=== PATIENT | female | born 1965 | race Caucasian/White ===

== ENCOUNTER 2017-03-30 09:29 | Inpatient (IN) | payer OTHER ==
[2017-03-30 09:35] VITALS: BMI 30.2
--- NOTE | 2017-03-30 14:35 | HP ---
CIWA Score - CIWA Score Nausea/Vomitin Muscle Tremors: 3 Anxiety: 4-Mod. Anxious/Guarded Agitation: 2 Paroxysmal Sweats: 2 Orientation: 0-Oriented Tacttile Disturbances: 3-Moderate Itch/Numb/Burn Auditory Disturbances: 0-None Visual Disturbances: 0-None Headache: 0-None Present CIWA-Ar Total Score: 17 Admission ROS BHS - HPI Chief Complaint: 51 y/o f pt with a h/o benzo /ambien dep seeking detox. Allergies/Adverse Reactions: Allergies Allergy/AdvReac Type Severity Reaction Status Date / Time codeine Allergy Intermediate numbness Verified 03/30/17 11:46 trazodone Allergy Intermediate hallucinati Verified 03/30/17 12:32 ons History of Present Illness: pt has h/o benzo /xanax dep needs help to stop use. Exam Limitations: No Limitations - Ebola screening Have you traveled outside of the country in the last 21 days: No Have you had contact with anyone from an Ebola affected area: No Have you been sick,other than usual withdrawal symptoms: No Do you have a fever: No - Review of Systems Constitutional: Malaise, Weight Stable EENT: reports: Other (os blepharosapsm) Respiratory: reports: Shortness of Breath, Other (h/o asthma) Cardiac: reports: Palpitations GI: reports: Constipated, Nausea, Poor Appetite : reports: Frequency Musculoskeletal: reports: Back Pain, Muscle Pain Integumentary: reports: No Symptoms Reported Neuro: reports: Tremors, Dizziness, Other (os blepharospam) Endocrine: reports: No Symptoms Reported Hematology: reports: Blood Clots (rt axilla, rt forearm and rt leg) Psychiatric: reports: Orientated x3, Anxious Other Systems: Reviewed and Negative Patient History - Patient Medical History Hx Anemia: No Hx Asthma: Yes Hx Chronic Obstructive Pulmonary Disease (COPD): No Hx Cancer: No Hx Cardiac Disorders: No Hx Congestive Heart Failure: No Hx Hypertension: No Hx Hypercholesterolemia: Yes (atorvastatin 20mg ) Hx Pacemaker: No HX Cerebrovascular Accident: No Hx Seizures: No Hx Diabetes: No Hx Gastrointestinal Disorders: No Hx Liver Disease: No Hx Genitourinary Disorders: No Hx Sexually Transmitted Disorders: No Hx Renal Disease (ESRD): No Hx Thyroid Disease: No Hx Human Immunodeficiency Virus (HIV): No Hx Hepatitis C: No Hx Depression: Yes Hx Suicide Attempt: No Hx Bipolar Disorder: No Hx Schizophrenia: No - Patient Surgical History Past Surgical History: Yes Other Surgical History: 3 embolisms(1 rt armpit/1rt forearm/1-rt calf) - PPD History Previous Implant?: Yes Documented Results: Negative w/o proof Implanted On Prior R Admission?: No PPD to be Administered?: Yes - Reproductive History Patient is a Female of Child Bearing Age (11 -55 yrs old): Yes Last Menstrual Period: 02/22/10 Patient : No - Smoking Cessation Smoking history: Current every day smoker Have you smoked in the past 12 months: Yes Aproximately how many cigarettes per day: 10 Hx Chewing Tobacco Use: No Initiated information on smoking cessation: Yes 'Breaking Loose' booklet given: 03/30/17 - Substance & Tx. History Hx Alcohol Use: No Hx Substance Use: Yes Substance Use Type: Tranquilizers Hx Substance Use Treatment: No - Substances Abused Alprazolam (Xanax) Route: Oral Frequency: Daily Amount used: 3 stiks Age of first use: 51 Date of Last Use: 03/29/17 ambien Route: Oral Frequency: Daily Amount used: 25-30 (10mg pills) Age of first use: 51 Date of Last Use: 03/29/17 Family Disease History - Family Disease History Family History: Denies Admission Physical Exam S - Vital Signs Vital Signs: Vital Signs - 24 hr 03/30/17 09:32 Temperature 97.9 F Pulse Rate 81 Respiratory 18 Rate Blood Pressure 133/80 - Physical General Appearance: Yes: Appropriately Dressed, Obese, Anxious HEENTM: Yes: EOMI, Hearing grossly Normal, Normocephalic, Normal Voice, TREVOR Respiratory: Yes: Within Normal Limits, Chest Non-Tender, Lungs Clear, Normal Breath Sounds Neck: Yes: Within Normal Limits Breast: Yes: Breast Exam Deferred Cardiology: Yes: Regular Rhythm, Regular Rate, S1, S2 Abdominal: Yes: Non Tender, Soft, Protuberent, Surgical Scar (lowe abd c- section scar well healed) Genitourinary: Yes: Frequency Back: Yes: Decreased Range of Motion Musculoskeletal: Yes: Back pain, Muscle Pain Extremities: Yes: Tremors, Other (well healed scars rt axilla , rt forearm and rt leg (sites of embolisms ) pulses diminished on rt upper extremity) Neurological: Yes: academic services professional II-XII NML intact, Fully Oriented, Numbness (rt upper ext.) Lymphatic: Yes: Within Normal Limits - Diagnostic (1) Benzodiazepine dependence Current Visit: Yes Status: Chronic (2) Hyperlipidemia Current Visit: Yes Status: Chronic Qualifiers: Hyperlipidemia type: unspecified Qualified Code(s): E78.5 - Hyperlipidemia , unspecified (3) Asthma Current Visit: Yes Status: Chronic Qualifiers: Asthma severity: mild Asthma persistence: intermittent Asthma complication type: uncomplicated Qualified Code(s): J45.20 - Mild intermittent asthma, uncomplicated (4) Nicotine dependence Current Visit: Yes Status: Chronic Qualifiers: Nicotine product type: cigarettes Substance use status: uncomplicated Qualified Code(s): F17.210 - Nicotine dependence, cigarettes, uncomplicated (5) Embolism Current Visit: Yes Status: Chronic BHS Breath Alcohol Content Breath Alcohol Content: 0 Urine Pregancy Test - Result Urine Test Results: Negative- NO Line Present Urine Drug Screen - Results Drug Screen Negative: No Urine Drug Screen Results: BZO-Benzodiazepines
[2017-03-30] MEDS ORDERED: MAGNESIUM HYDROX 2400MG/30ML ORAL SUSPENSION 30 ML CUP PO PRN (15:00)
[2017-03-30] MEDS ORDERED: MENTHOL/PHENOL 1 EACH UD MM PRN (15:00)
[2017-03-30] MEDS ORDERED: LOPERAMIDE HCL 2 MG CAPSULE PO PRN (15:00)
[2017-03-30] MEDS ORDERED: guaiFENesin/D-METHORPHAN HB 10 ML UNIT-DOSE CUPS PO PRN (15:00)
[2017-03-30] MEDS ORDERED: MAG HYDROX/AL HYDROX/SIMETH 30 ML UNIT-DOSE CUP PO PRN (15:00)
[2017-03-30] MEDS ORDERED: IBUPROFEN 400 MG TABLET (FP) PO PRN (15:00)
[2017-03-30] MEDS ORDERED: diazePAM 5 MG TABLET PO PRN (15:00)
[2017-03-30] MEDS ORDERED: ACETAMINOPHEN 325 MG TABLET (FP) PO PRN (15:00)
[2017-03-30] MEDS ORDERED: MAGNESIUM CITRATE 300 ML BOTTLE PO PRN (15:00)
[2017-03-30] MEDS ORDERED: P-EPHED 60MG/TRIPROLIDI 2.5MG TABLET PO PRN (15:00)
[2017-03-30] MEDS ORDERED: ALBUTEROL SO4 18 GM HFA INHALER IH PRN (15:05)
[2017-03-30] MEDS ORDERED: diazePAM 5 MG TABLET PO ONE (15:07)
[2017-03-30 15:54] LABS: HIV 1 & 2 AB NEGATIVE; HIV 1 AGp24 NEGATIVE
[2017-03-30 16:57] LABS: URINE APPEARANCE CLEAR; URINE BILIRUBIN NEGATIVE (NEGATIVE); URINE BLOOD 1+ (NEGATIVE); URINE COLOR STRAW; URINE GLUCOSE (UA) NEGATIVE (NEGATIVE); URINE KETONE NEGATIVE (NEGATIVE); URINE NITRITE NEGATIVE (NEGATIVE); URINE PROTEIN NEGATIVE (NEGATIVE); URINE UROBILINOGEN NEGATIVE mg/dL (0.2-1.0)
[2017-03-30 17:09] LABS: URINE BACTERIA RARE /hpf (NONE SEEN); URINE RBC < 1; URINE WBC 0
[2017-03-30 21:03] LABS: URINE LEUK ESTERASE Negative (NEGATIVE)
[2017-03-30] MEDS ORDERED: THIAMINE HCL 100 MG TABLET (FP) PO SCH (22:00)
[2017-03-30] MEDS ORDERED: ATORVASTATIN CA 20 MG TABLET (FP) PO SCH (22:00)
[2017-03-30] MEDS: diazePAM 5 MG TABLET PO SCH (22:23)
[2017-03-31] MEDS: diazePAM 5 MG TABLET PO SCH ×2 (05:43→13:28)
[2017-03-31] MEDS ORDERED: PRENATAL VITAMINS W/ FOLIC ACID TABLET (FP) PO SCH (10:00)
[2017-03-31 10:28] LABS: MEAN CELL VOLUME 90.8 fl (80-96); RDW 13.9 % (11.6-15.6); WHITE BLOOD COUNT 10.6 K/mm3 (4.0-10.0)
[2017-03-31 10:30] LABS: MCH 30.1 pg (25.7-33.7); MCHC 33.1 g/dl (32.0-36.0); PLATELET COUNT 268 K/MM3 (134-434)
[2017-03-31 10:53] LABS: ALBUMIN 3.5 g/dl (3.4-5.0); ANION GAP 6 (8-16); CALCIUM 8.6 mg/dL (8.5-10.1); CO2 29 mmol/L (21-32); CREATININE 0.7 mg/dL (0.55-1.02); GLUCOSE,RANDOM 95 mg/dL (74-106); SGOT/AST 7 U/L (15-37); SGPT/ALT 17 U/L (12-78)
[2017-03-31 10:54] LABS: ALK PHOS 104 U/L (45-117); BILIRUBIN,TOTAL 0.5 mg/dL (0.2-1.0); TOT PROT 6.7 g/dl (6.4-8.2)
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
--- NOTE | 2017-03-31 14:28 | PN ---
S CIWA - CIWA Score Nausea/Vomitin-No Nausea/No Vomiting Muscle Tremors: 4-Moderate,w/Arms Extend Anxiety: 4-Mod. Anxious/Guarded Agitation: 3 Paroxysmal Sweats: 3 Orientation: 0-Oriented Tacttile Disturbances: 0-None Auditory Disturbances: 0-None Visual Disturbances: 0-None Headache: 0-None Present CIWA-Ar Total Score: 14 BHS Progress Note (SOAP) Subjective: Anxiety,tremors,sweating,interrupted sleep,restless Objective: 03/31/17 14:28 Vital Signs - 8 hr 03/31/17 10:00 Temperature 98.4 F Pulse Rate 76 Respiratory 18 Rate Blood Pressure 118/64 Laboratory Tests 03/30/17 03/30/17 03/31/17 12:20 15:00 06:00 WBC 10.6 H RBC 4.57 Hgb 13.7 Hct 41.5 MCV 90.8 MCH 30.1 MCHC 33.1 RDW 13.9 Plt Count 268 MPV 9.0 Sodium Potassium Chloride Carbon Dioxide Anion Gap BUN Creatinine Creat Clearance w eGFR Random Glucose Calcium Total Bilirubin AST ALT Alkaline Phosphatase Total Protein Albumin Urine Color Straw Urine Appearance Clear Urine pH 6.0 Ur Specific [place] 1.001 Urine Protein Negative Urine Glucose (UA) Negative Urine Ketones Negative Urine Blood 1+ H Urine Nitrite Negative Urine Bilirubin Negative Urine Urobilinogen Negative Ur Leukocyte Esterase Negative Urine WBC (Auto) 0 Urine RBC (Auto) < 1 Urine Bacteria Rare RPR Titer HIV 1&2 Antibody Screen Negative HIV P24 Antigen Negative 03/31/17 03/31/17 06:00 06:00 WBC RBC Hgb Hct MCV MCH MCHC RDW Plt Count MPV Sodium 142 Potassium 4.0 Chloride 107 Carbon Dioxide 29 Anion Gap 6 L BUN 7 Creatinine 0.7 Creat Clearance w eGFR > 60 Random Glucose 95 Calcium 8.6 Total Bilirubin 0.5 AST 7 L ALT 17 Alkaline Phosphatase 104 Total Protein 6.7 Albumin 3.5 Urine Color Urine Appearance Urine pH Ur Specific [place] Urine Protein Urine Glucose (UA) Urine Ketones Urine Blood Urine Nitrite Urine Bilirubin Urine Urobilinogen Ur Leukocyte Esterase Urine WBC (Auto) Urine RBC (Auto) Urine Bacteria RPR Titer Nonreactive HIV 1&2 Antibody Screen HIV P24 Antigen labs noted Assessment: 03/31/17 14:28 Withdrawal sx. Plan: Continue detox
[2017-03-31 14:33] VITALS: BP 106/70; PULSE 77; TEMP 98.2
--- NOTE | 2017-03-31 17:37 | DS ---
[facility] Detox Discharge Summary Admission Date: 03/30/17 Discharge Date: 03/31/17 - History Present History: Sedative Dependence Additional Comments: Pt. signed out ama, we warned pt. about withdrawal sx. including seizures which could result in serious injury including . Pertinent Past History: Asthma Hypercholesterolemia - Physical Exam Results Vital Signs: Vital Signs Temperature 98.2 F 03/31/17 14:32 Pulse Rate 77 03/31/17 14:32 Respiratory Rate 18 03/31/17 14:32 Blood Pressure 106/70 03/31/17 14:32 O2 Sat by Pulse Oximetry (%) Pertinent Admission Physical Exam Findings: Withdrawal sx. Laboratory Tests 03/30/17 03/30/17 03/31/17 12:20 15:00 06:00 WBC 10.6 H RBC 4.57 Hgb 13.7 Hct 41.5 MCV 90.8 MCH 30.1 MCHC 33.1 RDW 13.9 Plt Count 268 MPV 9.0 Sodium Potassium Chloride Carbon Dioxide Anion Gap BUN Creatinine Creat Clearance w eGFR Random Glucose Calcium Total Bilirubin AST ALT Alkaline Phosphatase Total Protein Albumin Urine Color Straw Urine Appearance Clear Urine pH 6.0 Ur Specific [place] 1.001 Urine Protein Negative Urine Glucose (UA) Negative Urine Ketones Negative Urine Blood 1+ H Urine Nitrite Negative Urine Bilirubin Negative Urine Urobilinogen Negative Ur Leukocyte Esterase Negative Urine WBC (Auto) 0 Urine RBC (Auto) < 1 Urine Bacteria Rare RPR Titer HIV 1&2 Antibody Screen Negative HIV P24 Antigen Negative 03/31/17 03/31/17 06:00 06:00 WBC RBC Hgb Hct MCV MCH MCHC RDW Plt Count MPV Sodium 142 Potassium 4.0 Chloride 107 Carbon Dioxide 29 Anion Gap 6 L BUN 7 Creatinine 0.7 Creat Clearance w eGFR > 60 Random Glucose 95 Calcium 8.6 Total Bilirubin 0.5 AST 7 L ALT 17 Alkaline Phosphatase 104 Total Protein 6.7 Albumin 3.5 Urine Color Urine Appearance Urine pH Ur Specific [place] Urine Protein Urine Glucose (UA) Urine Ketones Urine Blood Urine Nitrite Urine Bilirubin Urine Urobilinogen Ur Leukocyte Esterase Urine WBC (Auto) Urine RBC (Auto) Urine Bacteria RPR Titer Nonreactive HIV 1&2 Antibody Screen HIV P24 Antigen labs noted - Medication Discharge Medications: Ambulatory Orders Albuterol Sulfate Inhaler - [Ventolin Hfa Inhaler -] 1 - 2 inh PO QID PRN Aspirin [ASA -] 81 mg PO DAILY 03/30/17 Atorvastatin Ca [Lipitor] 20 mg PO HS 03/30/17 Zolpidem Tartrate [Ambien] 10 mg PO HS 03/30/17 - Diagnosis (1) Sedative hypnotic or anxiolytic dependence Current Visit: Yes Status: Acute (2) Substance induced mood disorder Current Visit: Yes Status: Acute (3) Asthma Current Visit: Yes Status: Chronic Qualifiers: Asthma severity: mild Asthma persistence: intermittent Asthma complication type: uncomplicated Qualified Code(s): J45.20 - Mild intermittent asthma, uncomplicated (4) Hyperlipidemia Current Visit: Yes Status: Chronic Qualifiers: Hyperlipidemia type: unspecified Qualified Code(s): E78.5 - Hyperlipidemia , unspecified (5) Nicotine dependence Current Visit: Yes Status: Chronic Qualifiers: Nicotine product type: cigarettes Substance use status: uncomplicated Qualified Code(s): F17.210 - Nicotine dependence, cigarettes, uncomplicated (6) PTSD (post-traumatic stress disorder) Current Visit: Yes Status: Ruled-out - AMA Did Patient Leave Against Medical Advice: Yes
[2017-03-31] MEDS ORDERED: MIRTAZAPINE 15 MG TABLET (FP) PO SCH (22:00)
[2017-04-01] MEDS ORDERED: diazePAM 5 MG TABLET PO SCH (10:00)
[2017-04-01] MEDS ORDERED: ESCITALOPRAM OXALATE 10 MG TABLET (FP) PO SCH (10:00)
--- NOTE | 2017-04-02 09:42 | EKG ---
Test Reason : Blood Pressure : / mmHG Vent. Rate : 073 BPM Atrial Rate : 073 BPM P-R Int : 156 ms QRS Dur : 076 ms QT Int : 414 ms P-R-T Axes : 046 026 029 degrees QTc Int : 456 ms NORMAL SINUS RHYTHM POSSIBLE LEFT ATRIAL ENLARGEMENT BORDERLINE ECG NO PREVIOUS ECGS AVAILABLE Confirmed by LARRY HARVEY, BECKIE ([id number]) on 04/02/2017 9:41:46 AM Referred By: Confirmed By:BECKIE JUAREZ MD
[2017-04-03] MEDS ORDERED: diazePAM 5 MG TABLET PO SCH (10:00)
== END 2017-03-31 16:55 | disposition left against medical advice (07) | DRG 894 ==
LOC: YASAS 09:29 → Y6N 14:05
PROVIDERS: ADMIT Internal Medicine; ATTEND Internal Medicine
PROC: HZ2ZZZZ Detoxification Services for Substance Abuse Treatment (ICD-10-PCS; principal; 2017-03-30)
DX: F13.230 Sedative, hypnotic or anxiolytic dependence with withdrawal, uncomplicated (principal); F17.210 Nicotine dependence, cigarettes, uncomplicated; F41.9 Anxiety disorder, unspecified; F19.24 Other psychoactive substance dependence with psychoactive substance-induced mood disorder; F43.10 Post-traumatic stress disorder, unspecified; J45.20 Mild intermittent asthma, uncomplicated; E78.5 Hyperlipidemia, unspecified
CPT/HCPCS: 36415; 80053; 81003; 81015; 85027; 86593; 87389; 93005; 93010

== ENCOUNTER 2017-06-04 15:45 | Inpatient (IN) | payer OTHER ==
[2017-06-04 18:57] VITALS: BMI 29.8
--- NOTE | 2017-06-04 22:22 | HP ---
CIWA Score - CIWA Score Nausea/Vomitin-Mild Nausea/No Vomiting Muscle Tremors: 4-Moderate,w/Arms Extend Anxiety: 4-Mod. Anxious/Guarded Agitation: 4-Moderately Restless Paroxysmal Sweats: 1-Minimal Palms Moist Orientation: 1-Uncertain about Date Tacttile Disturbances: 1-Very Mild Itch/Numbness Auditory Disturbances: 0-None Visual Disturbances: 0-None Headache: 0-None Present CIWA-Ar Total Score: 16 Admission ROS BHS - HPI Chief Complaint: withdrawal sx Allergies/Adverse Reactions: Allergies Allergy/AdvReac Type Severity Reaction Status Date / Time codeine Allergy Intermediate numbness Verified 06/04/17 21:58 trazodone Allergy Intermediate hallucinati Verified 06/04/17 21:58 ons History of Present Illness: 51 years old female with long history of alcohol nicotine dependence has asthma hyperlipidemia depression and history of blood clots is admitted to detox Exam Limitations: No Limitations - Ebola screening Have you traveled outside of the country in the last 21 days: No Have you had contact with anyone from an Ebola affected area: No Have you been sick,other than usual withdrawal symptoms: No Do you have a fever: No - Review of Systems Constitutional: Changes in sleep, Weight Stable EENT: reports: Blurred Vision (eye glasses), Dental Problems (left upper tooth ache) Respiratory: reports: Cough Cardiac: reports: No Symptoms Reported GI: reports: Constipated, Nausea, Poor Fluid Intake, Indigestion, Abdominal cramping : reports: No Symptoms Reported Musculoskeletal: reports: Back Pain Integumentary: reports: Lesions (right breast right lateral) Neuro: reports: Tremors Endocrine: reports: No Symptoms Reported Hematology: reports: No Symptoms Reported Psychiatric: reports: Judgement Intact, Anxious, Depressed Other Systems: Reviewed and Negative Patient History - Patient Medical History Hx Anemia: No Hx Asthma: Yes Hx Chronic Obstructive Pulmonary Disease (COPD): No Hx Cancer: No Hx Cardiac Disorders: No Hx Congestive Heart Failure: No Hx Hypertension: No Hx Hypercholesterolemia: Yes (atorvastatin 20mg ) Hx Pacemaker: No HX Cerebrovascular Accident: No Hx Seizures: No Hx Diabetes: No Hx Gastrointestinal Disorders: No Hx Liver Disease: No Hx Genitourinary Disorders: Yes Hx Sexually Transmitted Disorders: No Hx Renal Disease (ESRD): No Hx Thyroid Disease: No Hx Human Immunodeficiency Virus (HIV): No Hx Hepatitis C: No Hx Depression: Yes Hx Suicide Attempt: No Hx Bipolar Disorder: No Hx Schizophrenia: No - Patient Surgical History Past Surgical History: Yes Hx Neurologic Surgery: No Hx Cataract Extraction: No Hx Cardiac Surgery: No Hx Lung Surgery: No Hx Breast Surgery: No Hx Breast Biopsy: No Hx Abdominal Surgery: No Hx Appendectomy: No Hx Cholecystectomy: No Hx Genitourinary Surgery: No Hx Orthopedic Surgery: No Other Surgical History: 3 embolisms(1 rt armpit/1rt forearm/1-rt calf) Anesthesia Reaction: No - PPD History Previous Implant?: Yes Documented Results: Negative w/o proof Implanted On Prior R Admission?: No PPD to be Administered?: Yes - Reproductive History Patient is a Female of Child Bearing Age (11 -55 yrs old): Yes Last Menstrual Period: 06/04/14 Patient : No - Smoking Cessation Smoking history: Current every day smoker Have you smoked in the past 12 months: Yes Aproximately how many cigarettes per day: 10 Cigars Per Day: 0 Hx Chewing Tobacco Use: No Initiated information on smoking cessation: Yes 'Breaking Loose' booklet given: 06/04/17 - Substance & Tx. History Hx Alcohol Use: No Hx Substance Use: Yes Substance Use Type: Tranquilizers Hx Substance Use Treatment: Yes (03/2017 [facility] - Substances Abused Alprazolam (Xanax) Route: Oral Frequency: Daily Amount used: 6mg Age of first use: 50 Date of Last Use: 06/04/17 Family Disease History - Family Disease History Family Disease History: Heart Disease: Father (), Respiratory: Brother ( depression), Other: Father, Mother (), Sister (depression) Admission Physical Exam S - Vital Signs Vital Signs: Vital Signs - 24 hr 06/04/17 18:53 Temperature 98.9 F Pulse Rate 90 Respiratory 18 Rate Blood Pressure 146/90 - Physical General Appearance: Yes: Appropriately Dressed, Mild Distress, Tremorous, Irritable, Sweating, Anxious HEENTM: Yes: Hearing grossly Normal, Normal ENT Inspection, Normocephalic, Normal Voice Respiratory: Yes: Chest Non-Tender, No Respiratory Distress, No Accessory Muscle Use, Wheezing Neck: Yes: Supple, Trachea in good position Breast: Yes: Breasts Symetrical Cardiology: Yes: Regular Rhythm, S1, S2, Tachycardia Abdominal: Yes: Non Tender, Soft, Decreased BS Genitourinary: Yes: Within Normal Limits Back: Yes: Normal Inspection Musculoskeletal: Yes: full range of Motion, Gait Steady Extremities: Yes: Normal Inspection, Normal Range of Motion, Non-Tender, Tremors Neurological: Yes: Alert, Motor Strength 5/5, Normal Response, Depressed Affect Integumentary: Yes: Warm Lymphatic: Yes: Within Normal Limits - Diagnostic (1) Sedative hypnotic or anxiolytic dependence Current Visit: Yes Status: Acute (2) Asthma Current Visit: Yes Status: Chronic Qualifiers: Asthma severity: mild Asthma persistence: intermittent Asthma complication type: uncomplicated Qualified Code(s): J45.20 - Mild intermittent asthma, uncomplicated (3) Hyperlipidemia Current Visit: Yes Status: Chronic Qualifiers: Hyperlipidemia type: unspecified Qualified Code(s): E78.5 - Hyperlipidemia , unspecified (4) Nicotine dependence Current Visit: Yes Status: Acute Qualifiers: Nicotine product type: cigarettes Substance use status: in withdrawal Qualified Code(s): F17.213 - Nicotine dependence, cigarettes, with withdrawal Cleared for Admission [facility] - Detox or Rehab [facility] Level of Care: Medically Managed Detox Regimen/Protocol: Librium [facility] Breath Alcohol Content Breath Alcohol Content: 0 Urine Pregancy Test - Result Urine Test Results: Negative- NO Line Present Urine Drug Screen - Results Drug Screen Negative: No Urine Drug Screen Results: BZO-Benzodiazepines
[2017-06-04] MEDS ORDERED: chlordiazePOXIDE HCL 25 MG CAPSULE PO PRN (22:31)
[2017-06-04] MEDS ORDERED: MAGNESIUM HYDROX 2400MG/30ML ORAL SUSPENSION 30 ML CUP PO PRN (22:31)
[2017-06-04] MEDS ORDERED: P-EPHED 60MG/TRIPROLIDI 2.5MG TABLET PO PRN (22:31)
[2017-06-04] MEDS ORDERED: MAGNESIUM CITRATE 300 ML BOTTLE PO PRN (22:31)
[2017-06-04] MEDS ORDERED: NICOTINE POLACRILEX 2 MG GUM BC PRN (22:31)
[2017-06-04] MEDS ORDERED: MAG HYDROX/AL HYDROX/SIMETH 30 ML UNIT-DOSE CUP PO PRN (22:31)
[2017-06-04] MEDS ORDERED: ACETAMINOPHEN 325 MG TABLET (FP) PO PRN (22:31)
[2017-06-04] MEDS ORDERED: guaiFENesin/D-METHORPHAN HB 10 ML UNIT-DOSE CUPS PO PRN (22:31)
[2017-06-04] MEDS ORDERED: MENTHOL/PHENOL 1 EACH UD MM PRN (22:31)
[2017-06-04] MEDS ORDERED: LOPERAMIDE HCL 2 MG CAPSULE PO PRN (22:31)
[2017-06-04] MEDS ORDERED: ALBUTEROL SO4 18 GM HFA INHALER IH PRN (22:34)
[2017-06-04] MEDS ORDERED: BACITRACIN 0.9 GM PACKET TP ONE (22:35)
[2017-06-04] MEDS ORDERED: ALBUTEROL SO4 0.083% IH SOL 2.5 MG/3 ML VIAL.NEB. NEB PRN (22:36)
[2017-06-04] MEDS: METHOCARBAMOL 500 MG TABLET PO PRN (23:47)
[2017-06-04] MEDS: chlordiazePOXIDE HCL 25 MG CAPSULE PO SCH (23:47)
[2017-06-05] MEDS: chlordiazePOXIDE HCL 25 MG CAPSULE PO SCH ×4 (05:43→22:29)
[2017-06-05 09:56] LABS: URINE APPEARANCE CLEAR; URINE BILIRUBIN NEGATIVE (NEGATIVE); URINE BLOOD NEGATIVE (NEGATIVE); URINE COLOR LTYELLOW; URINE GLUCOSE (UA) NEGATIVE (NEGATIVE); URINE KETONE NEGATIVE (NEGATIVE); URINE LEUK ESTERASE NEGATIVE (NEGATIVE); URINE NITRITE NEGATIVE (NEGATIVE); URINE PROTEIN NEGATIVE (NEGATIVE)
[2017-06-05 10:08] LABS: HEMATOCRIT 46.1 % (32.4-45.2); HEMOGLOBIN 14.9 GM/dL (10.7-15.3); MCH 29.3 pg (25.7-33.7); MCHC 32.2 g/dl (32.0-36.0); MEAN CELL VOLUME 90.9 fl (80-96); MEAN PLT VOLUME 8.8 fl (7.5-11.1); PLATELET COUNT 286 K/MM3 (134-434); RBC 5.08 M/mm3 (3.60-5.2); RDW 14.4 % (11.6-15.6); WHITE BLOOD COUNT 10.4 K/mm3 (4.0-10.0)
[2017-06-05] MEDS: PRENATAL VITAMINS W/ FOLIC ACID TABLET (FP) PO SCH (10:40)
[2017-06-05] MEDS: ASPIRIN 81 MG CHEWABLE TABLETS PO SCH (10:40)
[2017-06-05] MEDS: RANITIDINE HCL 150 MG TABLET (FP) PO SCH ×2 (10:40→22:29)
[2017-06-05] MEDS: NICOTINE 14 MG/24 HOURS TOPICAL PATCH TD SCH (10:40)
[2017-06-05] MEDS: ESCITALOPRAM OXALATE 10 MG TABLET (FP) PO SCH (10:41)
[2017-06-05] MEDS ORDERED: hydrOXYzine PAMOATE 50 MG CAPSULE (FP) PO PRN (11:04)
[2017-06-05 11:39] LABS: CHLORIDE 104 mmol/L (98-107); POTASSIUM 4.2 mmol/L (3.5-5.1); SODIUM 140 mmol/L (136-145)
[2017-06-05 12:08] LABS: ALBUMIN 3.5 g/dl (3.4-5.0); ALK PHOS 116 U/L (45-117); ANION GAP 11 (8-16); BILIRUBIN,TOTAL 0.3 mg/dL (0.2-1.0); BLOOD UREA NITROGEN 9 mg/dL (7-18); CALCIUM 9.2 mg/dL (8.5-10.1); CO2 25 mmol/L (21-32); CREATININE 0.8 mg/dL (0.55-1.02); GLUCOSE,RANDOM 91 mg/dL (74-106); SGOT/AST 9 U/L (15-37); SGPT/ALT 19 U/L (12-78); TOT PROT 7.3 g/dl (6.4-8.2)
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
--- NOTE | 2017-06-05 14:41 | PN ---
S CIWA - CIWA Score Nausea/Vomitin-Mild Nausea/No Vomiting Muscle Tremors: 3 Anxiety: 2 Agitation: 1-Slight > Activity Paroxysmal Sweats: 3 Orientation: 0-Oriented Tacttile Disturbances: 2-Mild Itch/Numbness/Burn Auditory Disturbances: 0-None Visual Disturbances: 1-Very Mild Sensitivity Headache: 2-Mild CIWA-Ar Total Score: 15 BHS Progress Note (SOAP) Objective: 06/05/17 14:41 Laboratory Tests 06/05/17 06/05/17 06/05/17 07:00 07:00 07:00 WBC 10.4 H RBC 5.08 Hgb 14.9 Hct 46.1 H MCV 90.9 MCH 29.3 MCHC 32.2 RDW 14.4 Plt Count 286 MPV 8.8 Sodium 140 Potassium 4.2 Chloride 104 Carbon Dioxide 25 Anion Gap 11 BUN 9 Creatinine 0.8 Creat Clearance w eGFR > 60 Random Glucose 91 Calcium 9.2 Total Bilirubin 0.3 D AST 9 L ALT 19 Alkaline Phosphatase 116 Total Protein 7.3 Albumin 3.5 Urine Color Urine Appearance Urine pH Ur Specific [place] Urine Protein Urine Glucose (UA) Urine Ketones Urine Blood Urine Nitrite Urine Bilirubin Urine Urobilinogen Ur Leukocyte Esterase RPR Titer Nonreactive 06/05/17 07:00 WBC RBC Hgb Hct MCV MCH MCHC RDW Plt Count MPV Sodium Potassium Chloride Carbon Dioxide Anion Gap BUN Creatinine Creat Clearance w eGFR Random Glucose Calcium Total Bilirubin AST ALT Alkaline Phosphatase Total Protein Albumin Urine Color Ltyellow Urine Appearance Clear Urine pH 7.0 Ur Specific [place] 1.011 Urine Protein Negative Urine Glucose (UA) Negative Urine Ketones Negative Urine Blood Negative Urine Nitrite Negative Urine Bilirubin Negative Urine Urobilinogen 2.0 H Ur Leukocyte Esterase Negative RPR Titer Vital Signs - 24 hr 06/04/17 06/04/17 06/05/17 18:53 23:51 03:30 Temperature 98.9 F 98.2 F Pulse Rate 90 91 H Respiratory 18 18 18 Rate Blood Pressure 146/90 125/78 06/05/17 06/05/17 06:00 09:40 Temperature 98.1 F 97.6 F Pulse Rate 75 80 Respiratory 18 18 Rate Blood Pressure 121/60 108/64 Assessment: 06/05/17 14:41 withdrawal Plan: continue protocol
[2017-06-05] MEDS: THIAMINE HCL 100 MG TABLET (FP) PO SCH (22:28)
[2017-06-05] MEDS: MIRTAZAPINE 15 MG TABLET (FP) PO SCH (22:28)
[2017-06-05] MEDS: ATORVASTATIN CA 20 MG TABLET (FP) PO SCH (22:29)
[2017-06-05] MEDS: SENNOSIDES 8.6MG TABLET (FP) PO SCH (22:29)
[2017-06-06] MEDS: chlordiazePOXIDE HCL 25 MG CAPSULE PO SCH ×3 (06:39→17:51)
--- NOTE | 2017-06-06 07:55 | EKG ---
Test Reason : Blood Pressure : / mmHG Vent. Rate : 074 BPM Atrial Rate : 074 BPM P-R Int : 156 ms QRS Dur : 066 ms QT Int : 356 ms P-R-T Axes : 052 025 017 degrees QTc Int : 395 ms NORMAL SINUS RHYTHM POSSIBLE LEFT ATRIAL ENLARGEMENT BORDERLINE ECG WHEN COMPARED WITH ECG OF 30-MAR-2017 17:29, QT HAS SHORTENED Confirmed by LARRY HRAVEY, BECKIE ([id number]) on 06/06/2017 7:54:52 AM Referred By: Confirmed By:BECKIE JUAREZ MD
[2017-06-06] MEDS: ASPIRIN 81 MG CHEWABLE TABLETS PO SCH (10:49)
[2017-06-06] MEDS: ESCITALOPRAM OXALATE 10 MG TABLET (FP) PO SCH (10:49)
[2017-06-06] MEDS: RANITIDINE HCL 150 MG TABLET (FP) PO SCH ×2 (10:49→22:32)
[2017-06-06] MEDS: PRENATAL VITAMINS W/ FOLIC ACID TABLET (FP) PO SCH (10:50)
[2017-06-06] MEDS: NICOTINE 14 MG/24 HOURS TOPICAL PATCH TD SCH (10:51)
--- NOTE | 2017-06-06 15:59 | PN ---
S CIWA - CIWA Score Nausea/Vomitin Muscle Tremors: 2 Anxiety: 3 Agitation: 2 Paroxysmal Sweats: 3 Orientation: 0-Oriented Tacttile Disturbances: 1-Very Mild Itch/Numbness Auditory Disturbances: 0-None Visual Disturbances: 0-None Headache: 0-None Present CIWA-Ar Total Score: 13 S Progress Note (SOAP) Subjective: sweats, shakes,anxiety Objective: 06/06/17 15:58 Vital Signs Temperature 98.0 F 06/06/17 13:24 Pulse Rate 80 06/06/17 13:24 Respiratory Rate 18 06/06/17 13:24 Blood Pressure 115/70 06/06/17 13:24 O2 Sat by Pulse Oximetry (%) Laboratory Tests 06/04/17 06/05/17 06/05/17 07:00 07:00 07:00 WBC 10.4 H RBC 5.08 Hgb 14.9 Hct 46.1 H MCV 90.9 MCH 29.3 MCHC 32.2 RDW 14.4 Plt Count 286 MPV 8.8 Sodium 140 Potassium 4.2 Chloride 104 Carbon Dioxide 25 Anion Gap 11 BUN 9 Creatinine 0.8 Creat Clearance w eGFR > 60 Random Glucose 91 Calcium 9.2 Total Bilirubin 0.3 D AST 9 L ALT 19 Alkaline Phosphatase 116 Total Protein 7.3 Albumin 3.5 Urine Color Urine Appearance Urine pH Ur Specific [place] Urine Protein Urine Glucose (UA) Urine Ketones Urine Blood Urine Nitrite Urine Bilirubin Urine Urobilinogen Ur Leukocyte Esterase RPR Titer Hepatitis C Antibody <0.1 06/05/17 06/05/17 07:00 07:00 WBC RBC Hgb Hct MCV MCH MCHC RDW Plt Count MPV Sodium Potassium Chloride Carbon Dioxide Anion Gap BUN Creatinine Creat Clearance w eGFR Random Glucose Calcium Total Bilirubin AST ALT Alkaline Phosphatase Total Protein Albumin Urine Color Ltyellow Urine Appearance Clear Urine pH 7.0 Ur Specific [place] 1.011 Urine Protein Negative Urine Glucose (UA) Negative Urine Ketones Negative Urine Blood Negative Urine Nitrite Negative Urine Bilirubin Negative Urine Urobilinogen 2.0 H Ur Leukocyte Esterase Negative RPR Titer Nonreactive Hepatitis C Antibody pt aox3 in nad ambulating Assessment: 06/06/17 15:59 withdrawal sx's Plan: cont detox increase fluids
[2017-06-06] MEDS: SENNOSIDES 8.6MG TABLET (FP) PO SCH (22:31)
[2017-06-06] MEDS: THIAMINE HCL 100 MG TABLET (FP) PO SCH (22:31)
[2017-06-06] MEDS: chlordiazePOXIDE 5 MG CAPSULE PO SCH (22:31)
[2017-06-06] MEDS: MIRTAZAPINE 15 MG TABLET (FP) PO SCH (22:32)
[2017-06-06] MEDS: ATORVASTATIN CA 20 MG TABLET (FP) PO SCH (22:32)
[2017-06-06] MEDS: METHOCARBAMOL 500 MG TABLET PO PRN (22:32)
[2017-06-07] MEDS: chlordiazePOXIDE 5 MG CAPSULE PO SCH ×3 (06:01→17:09)
[2017-06-07] MEDS: ESCITALOPRAM OXALATE 10 MG TABLET (FP) PO SCH (11:04)
[2017-06-07] MEDS: NICOTINE 14 MG/24 HOURS TOPICAL PATCH TD SCH (11:05)
[2017-06-07] MEDS: PRENATAL VITAMINS W/ FOLIC ACID TABLET (FP) PO SCH (11:05)
[2017-06-07] MEDS: RANITIDINE HCL 150 MG TABLET (FP) PO SCH ×2 (11:05→22:33)
[2017-06-07] MEDS: ASPIRIN 81 MG CHEWABLE TABLETS PO SCH (11:05)
--- NOTE | 2017-06-07 11:57 | PN ---
BHS Progress Note (SOAP) Subjective: tremor anxiety sweat Objective: 06/07/17 11:56 Vital Signs Temperature 97.7 F 06/07/17 09:51 Pulse Rate 67 06/07/17 09:51 Respiratory Rate 18 06/07/17 09:51 Blood Pressure 98/64 06/07/17 09:51 O2 Sat by Pulse Oximetry (%) Laboratory Last Values WBC 10.4 K/mm3 (4.0-10.0) H 06/05/17 07:00 RBC 5.08 M/mm3 (3.60-5.2) 06/05/17 07:00 Hgb 14.9 GM/dL (10.7-15.3) 06/05/17 07:00 Hct 46.1 % (32.4-45.2) H 06/05/17 07:00 MCV 90.9 fl (80-96) 06/05/17 07:00 MCH 29.3 pg (25.7-33.7) 06/05/17 07:00 MCHC 32.2 g/dl (32.0-36.0) 06/05/17 07:00 RDW 14.4 % (11.6-15.6) 06/05/17 07:00 Plt Count 286 K/MM3 (134-434) 06/05/17 07:00 MPV 8.8 fl (7.5-11.1) 06/05/17 07:00 Sodium 140 mmol/L (136-145) 06/05/17 07:00 Potassium 4.2 mmol/L (3.5-5.1) 06/05/17 07:00 Chloride 104 mmol/L (98-107) 06/05/17 07:00 Carbon Dioxide 25 mmol/L (21-32) 06/05/17 07:00 Anion Gap 11 (8-16) 06/05/17 07:00 BUN 9 mg/dL (7-18) 06/05/17 07:00 Creatinine 0.8 mg/dL (0.55-1.02) 06/05/17 07:00 Creat Clearance w eGFR > 60 (>60) 06/05/17 07:00 Random Glucose 91 mg/dL (74-106) 06/05/17 07:00 Calcium 9.2 mg/dL (8.5-10.1) 06/05/17 07:00 Total Bilirubin 0.3 mg/dL (0.2-1.0) D 06/05/17 07:00 AST 9 U/L (15-37) L 06/05/17 07:00 ALT 19 U/L (12-78) 06/05/17 07:00 Alkaline Phosphatase 116 U/L (45-117) 06/05/17 07:00 Total Protein 7.3 g/dl (6.4-8.2) 06/05/17 07:00 Albumin 3.5 g/dl (3.4-5.0) 06/05/17 07:00 Urine Color Ltyellow 06/05/17 07:00 Urine Appearance Clear 06/05/17 07:00 Urine pH 7.0 (5.0-8.0) 06/05/17 07:00 Ur Specific [place] 1.011 (1.001-1.035) 06/05/17 07:00 Urine Protein Negative (NEGATIVE) 06/05/17 07:00 Urine Glucose (UA) Negative (NEGATIVE) 06/05/17 07:00 Urine Ketones Negative (NEGATIVE) 06/05/17 07:00 Urine Blood Negative (NEGATIVE) 06/05/17 07:00 Urine Nitrite Negative (NEGATIVE) 06/05/17 07:00 Urine Bilirubin Negative (NEGATIVE) 06/05/17 07:00 Urine Urobilinogen 2.0 mg/dL (0.2-1.0) H 06/05/17 07:00 Ur Leukocyte Esterase Negative (NEGATIVE) 06/05/17 07:00 RPR Titer Nonreactive (NONREACTIVE) 06/05/17 07:00 Hepatitis C Antibody <0.1 s/co ratio (0.0-0.9) 06/04/17 07:00 lab noted Assessment: 06/07/17 11:57 withdrawal sx Plan: continue detox
[2017-06-07] MEDS: THIAMINE HCL 100 MG TABLET (FP) PO SCH (22:31)
[2017-06-07] MEDS: SENNOSIDES 8.6MG TABLET (FP) PO SCH (22:32)
[2017-06-07] MEDS: METHOCARBAMOL 500 MG TABLET PO PRN (22:32)
[2017-06-07] MEDS: MIRTAZAPINE 15 MG TABLET (FP) PO SCH (22:32)
[2017-06-07] MEDS: chlordiazePOXIDE HCL 10 MG CAPSULE PO SCH (22:33)
[2017-06-07] MEDS: ATORVASTATIN CA 20 MG TABLET (FP) PO SCH (22:33)
[2017-06-08] MEDS: chlordiazePOXIDE HCL 10 MG CAPSULE PO SCH ×2 (05:34→10:17)
--- NOTE | 2017-06-08 09:37 | DS ---
[facility] Detox Discharge Summary Admission Date: 06/04/17 Discharge Date: 06/08/17 - History Present History: Sedative Dependence Pertinent Past History: Asthma Hyperlipidemia - Physical Exam Results Vital Signs: Vital Signs Temperature 97.2 F L 06/08/17 07:42 Pulse Rate 67 06/08/17 07:42 Respiratory Rate 16 06/08/17 07:42 Blood Pressure 101/58 06/08/17 07:42 O2 Sat by Pulse Oximetry (%) Pertinent Admission Physical Exam Findings: Withdrawal sx. Laboratory Tests 06/04/17 06/05/17 06/05/17 07:00 07:00 07:00 WBC 10.4 H RBC 5.08 Hgb 14.9 Hct 46.1 H MCV 90.9 MCH 29.3 MCHC 32.2 RDW 14.4 Plt Count 286 MPV 8.8 Sodium 140 Potassium 4.2 Chloride 104 Carbon Dioxide 25 Anion Gap 11 BUN 9 Creatinine 0.8 Creat Clearance w eGFR > 60 Random Glucose 91 Calcium 9.2 Total Bilirubin 0.3 D AST 9 L ALT 19 Alkaline Phosphatase 116 Total Protein 7.3 Albumin 3.5 Urine Color Urine Appearance Urine pH Ur Specific [place] Urine Protein Urine Glucose (UA) Urine Ketones Urine Blood Urine Nitrite Urine Bilirubin Urine Urobilinogen Ur Leukocyte Esterase RPR Titer Hepatitis C Antibody <0.1 06/05/17 06/05/17 07:00 07:00 WBC RBC Hgb Hct MCV MCH MCHC RDW Plt Count MPV Sodium Potassium Chloride Carbon Dioxide Anion Gap BUN Creatinine Creat Clearance w eGFR Random Glucose Calcium Total Bilirubin AST ALT Alkaline Phosphatase Total Protein Albumin Urine Color Ltyellow Urine Appearance Clear Urine pH 7.0 Ur Specific [place] 1.011 Urine Protein Negative Urine Glucose (UA) Negative Urine Ketones Negative Urine Blood Negative Urine Nitrite Negative Urine Bilirubin Negative Urine Urobilinogen 2.0 H Ur Leukocyte Esterase Negative RPR Titer Nonreactive Hepatitis C Antibody labs noted - Treatment Hospital Course: Detox Protocol Followed, Detoxed Safely, Responded well, Discharged Condition Good, Rehab Referral Accepted Patient has Accepted a Rehab Referral to: Counseling services of [facility] Medication Discharge Medications: Ambulatory Orders Albuterol Sulfate Inhaler - [Ventolin Hfa Inhaler -] 1 - 2 inh PO QID PRN Zolpidem Tartrate [Ambien] 10 mg PO HS 03/30/17 Aspirin [ASA -] 81 mg PO DAILY #30 tab.chew 06/08/17 Atorvastatin Ca [Lipitor] 20 mg PO HS #30 tablet 06/08/17 - Diagnosis (1) Nicotine dependence Current Visit: Yes Status: Acute Qualifiers: Nicotine product type: cigarettes Substance use status: in withdrawal Qualified Code(s): F17.213 - Nicotine dependence, cigarettes, with withdrawal (2) Sedative hypnotic or anxiolytic dependence Current Visit: Yes Status: Acute (3) Asthma Current Visit: Yes Status: Chronic Qualifiers: Asthma severity: mild Asthma persistence: intermittent Asthma complication type: uncomplicated Qualified Code(s): J45.20 - Mild intermittent asthma, uncomplicated (4) Hyperlipidemia Current Visit: Yes Status: Chronic Qualifiers: Hyperlipidemia type: unspecified Qualified Code(s): E78.5 - Hyperlipidemia , unspecified (5) MDD (major depressive disorder) Current Visit: Yes Status: Chronic - AMA Did Patient Leave Against Medical Advice: No
[2017-06-08 09:46] VITALS: BP 115/70; PULSE 69; TEMP 97.5
[2017-06-08] MEDS: PRENATAL VITAMINS W/ FOLIC ACID TABLET (FP) PO SCH (10:15)
[2017-06-08] MEDS: ASPIRIN 81 MG CHEWABLE TABLETS PO SCH (10:15)
[2017-06-08] MEDS: ESCITALOPRAM OXALATE 10 MG TABLET (FP) PO SCH (10:16)
[2017-06-08] MEDS: RANITIDINE HCL 150 MG TABLET (FP) PO SCH (10:17)
[2017-06-08] MEDS: NICOTINE 14 MG/24 HOURS TOPICAL PATCH TD SCH (10:17)
== END 2017-06-08 10:25 | disposition home or self-care (01) | DRG 897 ==
LOC: YASAS 15:45 → Y6N 20:24
PROVIDERS: ADMIT Internal Medicine; ATTEND Internal Medicine
PROC: HZ2ZZZZ Detoxification Services for Substance Abuse Treatment (ICD-10-PCS; principal; 2017-06-04)
DX: F13.20 Sedative, hypnotic or anxiolytic dependence, uncomplicated (principal); F33.9 Major depressive disorder, recurrent, unspecified; F17.210 Nicotine dependence, cigarettes, uncomplicated; J45.20 Mild intermittent asthma, uncomplicated; E78.00 Pure hypercholesterolemia, unspecified; E78.5 Hyperlipidemia, unspecified; Z86.79 Personal history of other diseases of the circulatory system
CPT/HCPCS: 36415; 80053; 81003; 85027; 86593; 86803; 93005; 93010

== ENCOUNTER 2017-06-20 13:52 | Inpatient (IN) | payer OTHER ==
[2017-06-20 16:34] VITALS: BMI 30.7
--- NOTE | 2017-06-20 17:33 | HP ---
Admission [facility] Chief Complaint: I am here for rehab Allergies/Adverse Reactions: Allergies Allergy/AdvReac Type Severity Reaction Status Date / Time codeine Allergy Intermediate numbness Verified 06/20/17 17:25 trazodone Allergy Intermediate hallucinati Verified 06/20/17 17:25 ons History of Present Illness: 56 yo female with history of Alcohol, Nicotine and Xanax dependence is here for rehab. Patient has a 10 year smoking history, currently smokes 10 cigarettes per day. Patient has medical history of hyperlipidemia, asthma, DVT, insomnia, depression, anxiety, panic attacks. Last detox at [facility] 06/04/17 -06/08/17. Patient currently denies suicidal / homicidal ideation. Reports last suicide attempt 2016 by attempting to overdose on pills, was admitted to [facility]. Exam Limitations: No Limitations - Ebola screening Have you traveled outside of the country in the last 21 days: No (N) Have you had contact with anyone from an Ebola affected area: No Have you been sick,other than usual withdrawal symptoms: No Do you have a fever: No - Review of Systems Constitutional: Changes in sleep, Weakness, Unintentional Wgt. Loss (Reports weight loss of 30lb in the past two months) EENT: reports: Blurred Vision, Other (uses glasses) Respiratory: reports: Cough, Wheezing (at night) Cardiac: reports: No Symptoms Reported GI: reports: Constipated (last BM 4 days ago) : reports: No Symptoms Reported Musculoskeletal: reports: Joint Pain (b/l knee pain when it rains) Integumentary: reports: Pruritus (face) Endocrine: reports: No Symptoms Reported Hematology: reports: Blood Clots (hx of DVT on aspirin tx) Psychiatric: reports: Orientated x3, Anxious Other Systems: Reviewed and Negative Patient History - Patient Medical History Hx Anemia: No Hx Asthma: Yes (on albuterol ) Hx Chronic Obstructive Pulmonary Disease (COPD): No Hx Cancer: No Hx Cardiac Disorders: No Hx Congestive Heart Failure: No Hx Hypertension: No Hx Hypercholesterolemia: Yes (atorvastatin 20mg ) Hx Pacemaker: No HX Cerebrovascular Accident: No Hx Seizures: No Hx Dementia: No Hx Diabetes: No Hx Gastrointestinal Disorders: No Hx Liver Disease: No Hx Genitourinary Disorders: Yes Hx Sexually Transmitted Disorders: No Hx Renal Disease (ESRD): No Hx Thyroid Disease: No Hx Human Immunodeficiency Virus (HIV): No Hx Hepatitis C: No Hx Depression: Yes Hx Suicide Attempt: Yes (February 2017) Hx Bipolar Disorder: No Hx Schizophrenia: No Other Medical History: Hx Paranoid, and Panic Attacks - Patient Surgical History Past Surgical History: Yes Hx Neurologic Surgery: No Hx Cataract Extraction: No Hx Cardiac Surgery: No Hx Lung Surgery: No Hx Breast Surgery: No Hx Breast Biopsy: No Hx Abdominal Surgery: No Hx Appendectomy: No Hx Cholecystectomy: No Hx Genitourinary Surgery: No Hx Section: No Hx Orthopedic Surgery: No Other Surgical History: 3 embolisms(1 rt armpit/1rt forearm/1-rt calf) Anesthesia Reaction: No - PPD History Previous Implant?: Yes Documented Results: Negative w/proof Date: 06/06/17 PPD to be Administered?: Yes - Reproductive History Patient is a Female of Child Bearing Age (11 -55 yrs old): Yes Last Menstrual Period: 06/04/14 - Smoking Cessation Smoking history: Current every day smoker Have you smoked in the past 12 months: Yes Aproximately how many cigarettes per day: 10 Cigars Per Day: 0 Hx Chewing Tobacco Use: No Initiated information on smoking cessation: Yes 'Breaking Loose' booklet given: 06/20/17 - Substance & Tx. History Hx Alcohol Use: No Hx Substance Use: Yes Substance Use Type: Tranquilizers Hx Substance Use Treatment: Yes ([facility] 06/04/17 -06/08/17) - Substances Abused Alprazolam (Xanax) Route: Oral Frequency: 1-2 times per week Amount used: 8MG Age of first use: 51 Date of Last Use: 06/19/17 Family Disease History - Family Disease History Family Disease History: Heart Disease: Father (), Respiratory: Brother ( depression), Other: Father, Mother (), Sister (depression) Admission Physical Exam BHS - Vital Signs Vital Signs: Vital Signs - 24 hr 06/20/17 16:17 Temperature 98.6 F Pulse Rate 90 Respiratory 20 Rate Blood Pressure 123/71 - Physical General Appearance: Yes: Disheveled, Obese, Anxious HEENTM: Yes: EOMI, Hearing grossly Normal, Normal ENT Inspection, Normocephalic , Normal Voice, Pharynx Normal Respiratory: Yes: Chest Non-Tender, Lungs Clear, Normal Breath Sounds, No Respiratory Distress, No Accessory Muscle Use Neck: Yes: No masses,lesions,Nodules, Trachea in good position Breast: Yes: Breast Exam Deferred Cardiology: Yes: Regular Rhythm, Regular Rate, S1, S2 Abdominal: Yes: Normal Bowel Sounds, Non Tender, Soft, Protuberent Genitourinary: Yes: Within Normal Limits (reports no urinary symptoms) Back: Yes: Normal Inspection Musculoskeletal: Yes: full range of Motion, Gait Steady, Pelvis Stable Extremities: Yes: Normal Capillary Refill, Normal Inspection, Normal Range of Motion, Non-Tender Neurological: Yes: Fully Oriented, Alert, Motor Strength 5/5, Other (anxious) Integumentary: Yes: Normal Color, Dry, Warm Lymphatic: Yes: Within Normal Limits - Diagnostic (1) Constipation Current Visit: Yes Status: Acute Qualifiers: Constipation type: unspecified constipation type Qualified Code(s): K59.00 - Constipation, unspecified (2) Anxious mood Current Visit: Yes Status: Acute (3) Difficulty sleeping Current Visit: Yes Status: Acute (4) Obesity (BMI 30.0-34.9) Current Visit: Yes Status: Chronic (5) Nicotine dependence Current Visit: Yes Status: Chronic Qualifiers: Nicotine product type: cigarettes Substance use status: in withdrawal Qualified Code(s): F17.213 - Nicotine dependence, cigarettes, with withdrawal (6) Sedative hypnotic or anxiolytic dependence Current Visit: No Status: Acute (7) Asthma Current Visit: Yes Status: Chronic Qualifiers: Asthma severity: mild Asthma persistence: intermittent Asthma complication type: uncomplicated Qualified Code(s): J45.20 - Mild intermittent asthma, uncomplicated (8) Hyperlipidemia Current Visit: Yes Status: Chronic Qualifiers: Hyperlipidemia type: unspecified Qualified Code(s): E78.5 - Hyperlipidemia , unspecified BHS Breath Alcohol Content Breath Alcohol Content: 0 Urine Pregancy Test - Result Urine Test Results: Negative- NO Line Present Urine Drug Screen - Results Drug Screen Negative: No Urine Drug Screen Results: BZO-Benzodiazepines Inpatient Rehab Admission - Initial Determination Are CD services needed?: Yes Free of communicable disease: Yes Not in need of hospitalization: Yes - Rehab Admission Criteria Previous failed treatment: Yes Poor recovery environment: Yes Lacks judgement: Yes Patient is meeting Inpatient Rehab admission criteria:: Yes
[2017-06-20] MEDS ORDERED: P-EPHED 60MG/TRIPROLIDI 2.5MG TABLET PO PRN (17:56)
[2017-06-20] MEDS ORDERED: NICOTINE POLACRILEX 2 MG GUM BUC PRN (17:56)
[2017-06-20] MEDS ORDERED: IBUPROFEN 400 MG TABLET (FP) PO PRN (17:56)
[2017-06-20] MEDS ORDERED: MAGNESIUM HYDROX 2400MG/30ML ORAL SUSPENSION 30 ML CUP PO PRN (17:56)
[2017-06-20] MEDS ORDERED: hydrOXYzine PAMOATE 50 MG CAPSULE (FP) PO PRN (17:56)
[2017-06-20] MEDS ORDERED: LOPERAMIDE HCL 2 MG CAPSULE PO PRN (17:56)
[2017-06-20] MEDS ORDERED: guaiFENesin/D-METHORPHAN HB 10 ML UNIT-DOSE CUPS PO PRN (17:56)
[2017-06-20] MEDS ORDERED: MAG HYDROX/AL HYDROX/SIMETH 30 ML UNIT-DOSE CUP PO PRN (17:56)
[2017-06-20] MEDS ORDERED: ACETAMINOPHEN 325 MG TABLET (FP) PO PRN (17:56)
[2017-06-20] MEDS ORDERED: MENTHOL/PHENOL 1 EACH UD MM PRN (17:56)
[2017-06-20] MEDS ORDERED: MAGNESIUM CITRATE 300 ML BOTTLE PO PRN (17:56)
[2017-06-20] MEDS ORDERED: ALBUTEROL SO4 18 GM HFA INHALER IH PRN (18:08)
[2017-06-20] MEDS ORDERED: ALBUTEROL SO4 2.5/IPRATROPIUM 0.5 INH SOL 3 ML VIAL.NEB. NEB PRN (18:10)
[2017-06-20] MEDS ORDERED: ATORVASTATIN CA 20 MG TABLET (FP) PO SCH (22:00)
[2017-06-20] MEDS ORDERED: THIAMINE HCL 100 MG TABLET (FP) PO SCH (22:00)
[2017-06-20] MEDS ORDERED: DOCUSATE SODIUM 100 MG CAPSULE (FP) PO SCH (22:00)
--- NOTE | 2017-06-20 22:16 | PN ---
S Progress Note Note: Psychiatry Attending's note : Made aware of admission of this patient to [facility]. Orders requested by nurse on duty : lexapro 5 mg po daily.Ordered. remeron 7.5 mg po (stat dose) Spoke to patient via telephone. History taken. [facility] report : read and appreciated. Side effects/benefits discussed. Ms Dee agrees with careplan. Unit psychiatrist will follow in AM.
[2017-06-20] MEDS ORDERED: MIRTAZAPINE 15 MG TABLET (FP) PO ONE (22:30)
[2017-06-20 23:11] LABS: URINE APPEARANCE CLEAR; URINE BILIRUBIN NEGATIVE (NEGATIVE); URINE BLOOD 1+ (NEGATIVE); URINE COLOR STRAW; URINE GLUCOSE (UA) NEGATIVE (NEGATIVE); URINE KETONE NEGATIVE (NEGATIVE); URINE LEUK ESTERASE NEGATIVE (NEGATIVE); URINE NITRITE NEGATIVE (NEGATIVE); URINE PROTEIN NEGATIVE (NEGATIVE); URINE UROBILINOGEN NEGATIVE mg/dL (0.2-1.0)
[2017-06-20 23:17] LABS: EPI CELLS RARE /HPF (FEW)
[2017-06-21 07:10] VITALS: TEMP 97.9
[2017-06-21 09:27] VITALS: BP 102/69; PULSE 72
[2017-06-21] MEDS ORDERED: PRENATAL VITAMINS W/ FOLIC ACID TABLET (FP) PO SCH (10:00)
[2017-06-21] MEDS ORDERED: ASPIRIN 81 MG CHEWABLE TABLETS PO SCH (10:00)
[2017-06-21] MEDS ORDERED: NICOTINE 14 MG/24 HOURS TOPICAL PATCH TD SCH (10:00)
[2017-06-21] MEDS ORDERED: ESCITALOPRAM OXALATE 10 MG TABLET (FP) PO SCH (10:00)
[2017-06-21 10:16] LABS: HEMATOCRIT 41.2 % (32.4-45.2); HEMOGLOBIN 13.3 GM/dL (10.7-15.3); MCH 29.4 pg (25.7-33.7); MCHC 32.2 g/dl (32.0-36.0); MEAN CELL VOLUME 91.2 fl (80-96); MEAN PLT VOLUME 8.7 fl (7.5-11.1); PLATELET COUNT 235 K/MM3 (134-434); RBC 4.52 M/mm3 (3.60-5.2); RDW 14.8 % (11.6-15.6); WHITE BLOOD COUNT 8.7 K/mm3 (4.0-10.0)
[2017-06-21 10:27] LABS: ALBUMIN 3.1 g/dl (3.4-5.0); ANION GAP 6 (8-16); BLOOD UREA NITROGEN 11 mg/dL (7-18); CALCIUM 8.8 mg/dL (8.5-10.1); CHLORIDE 109 mmol/L (98-107); CO2 29 mmol/L (21-32); GLUCOSE,RANDOM 102 mg/dL (74-106); POTASSIUM 4.3 mmol/L (3.5-5.1); SODIUM 144 mmol/L (136-145)
[2017-06-21 10:33] LABS: ALK PHOS 86 U/L (45-117); BILIRUBIN,TOTAL 0.6 mg/dL (0.2-1.0); CREATININE 0.7 mg/dL (0.55-1.02); SGOT/AST 10 U/L (15-37); SGPT/ALT 20 U/L (12-78); TOT PROT 6.1 g/dl (6.4-8.2)
[2017-06-21] MEDS ORDERED: PNEUMOC 13-VAL CONJ-DIP CRM/PF 0.5 ML DISP.SYRIN IM ONE (12:00)
[2017-06-21] MEDS ORDERED: PNEUMOCOCCAL 23 VACCINE 0.5 ML VIAL IM ONE (12:00)
--- NOTE | 2017-06-21 12:14 | EKG ---
Test Reason : Blood Pressure : / mmHG Vent. Rate : 093 BPM Atrial Rate : 093 BPM P-R Int : 148 ms QRS Dur : 070 ms QT Int : 362 ms P-R-T Axes : 053 035 036 degrees QTc Int : 450 ms NORMAL SINUS RHYTHM POSSIBLE LEFT ATRIAL ENLARGEMENT BORDERLINE ECG WHEN COMPARED WITH ECG OF 05-JUN-2017 00:00, ST NO LONGER ELEVATED IN LATERAL LEADS QT HAS LENGTHENED Confirmed by MYRNA HARVEY, JANIE ([id number]) on 06/21/2017 12:14:18 PM Referred By: Confirmed By:JANIE NORRIS MD
== END 2017-06-21 13:56 | disposition left against medical advice (07) | DRG 894 ==
LOC: YASAS 13:52 → Y3E 17:35
PROVIDERS: ADMIT Internal Medicine; ATTEND Internal Medicine
PROC: HZ2ZZZZ Detoxification Services for Substance Abuse Treatment (ICD-10-PCS; principal; 2017-06-20)
DX: F13.20 Sedative, hypnotic or anxiolytic dependence, uncomplicated (principal); F17.213 Nicotine dependence, cigarettes, with withdrawal; F41.9 Anxiety disorder, unspecified; J45.20 Mild intermittent asthma, uncomplicated; K59.00 Constipation, unspecified; G47.00 Insomnia, unspecified; E78.5 Hyperlipidemia, unspecified; E66.9 Obesity, unspecified; Z68.30 Body mass index [BMI] 30.0-30.9, adult; Z88.5 Allergy status to narcotic agent; Z91.5 Personal history of self-harm
CPT/HCPCS: 36415; 80053; 81003; 81015; 85027; 86593; 87389; 90732; 93005; 93010; G0009

== ENCOUNTER 2018-01-29 13:04 | Inpatient (IN) | payer OTHER ==
[2018-01-29 13:39] VITALS: BP 117/71; PULSE 89; TEMP 98.5; BMI 28.3
--- NOTE | 2018-01-29 14:24 | HP ---
CIWA Score - CIWA Score Nausea/Vomitin Muscle Tremors: 2 Anxiety: 4-Mod. Anxious/Guarded Agitation: 4-Moderately Restless Paroxysmal Sweats: 2 Orientation: 0-Oriented Tacttile Disturbances: 2-Mild Itch/Numbness/Burn Auditory Disturbances: 0-None Visual Disturbances: 0-None Headache: 3-Moderate CIWA-Ar Total Score: 20 Admission ROS BHS - HPI Chief Complaint: xanax withdrawal symptoms Allergies/Adverse Reactions: Allergies Allergy/AdvReac Type Severity Reaction Status Date / Time codeine Allergy Intermediate numbness Verified 01/29/18 14:04 trazodone Allergy Intermediate hallucinati Verified 01/29/18 14:04 ons History of Present Illness: 56 yo female with history of Nicotine, Xanax, ambien dependence is here for benzo detox. Patient has medical history of hyperlipidemia, asthma, DVT, insomnia, depression, anxiety, panic attacks. Last detox at [facility] 06/04/17 -. Rehab 06/20/17 - 06/21/17 left AMA. Reports increase difficultly sleeping, anxiety and depression, more than usual after the of nephew a few days ago. Patient currently denies suicidal / homicidal ideation. Reports last suicide attempt 2016 by attempting to overdose on pills, was admitted to [facility]. Denies hx of seizures or blackouts. Exam Limitations: No Limitations - Ebola screening Have you traveled outside of the country in the last 21 days: No Have you had contact with anyone from an Ebola affected area: No Have you been sick,other than usual withdrawal symptoms: No Do you have a fever: No - Review of Systems Constitutional: Loss of Appetite (burried nephew four days ahgo), Changes in sleep, Weakness EENT: reports: No Symptoms Reported Respiratory: reports: No Symptoms reported Cardiac: reports: Lightheadedness GI: reports: Constipated (last BM three days ago), Nausea, Poor Appetite, Poor Fluid Intake : reports: No Symptoms Reported Musculoskeletal: reports: Back Pain Integumentary: reports: No Symptoms Reported Neuro: reports: Headache, Numbness (under both feet) Endocrine: reports: Increased Thirst Hematology: reports: No Symptoms Reported Psychiatric: reports: Orientated x3, Depressed Other Systems: Reviewed and Negative Patient History - Patient Medical History Hx Anemia: No Hx Asthma: Yes (Pt is on MDI.) Hx Chronic Obstructive Pulmonary Disease (COPD): No Hx Cancer: No Hx Cardiac Disorders: No Hx Congestive Heart Failure: No Hx Hypertension: No Hx Hypercholesterolemia: Yes (atorvastatin 20mg ) Hx Pacemaker: No HX Cerebrovascular Accident: No Hx Seizures: No Hx Dementia: No Hx Diabetes: No Hx Gastrointestinal Disorders: Yes (pt has acid reflux.) Hx Liver Disease: No Hx Genitourinary Disorders: No Hx Sexually Transmitted Disorders: No Hx Renal Disease (ESRD): No Hx Thyroid Disease: No Hx Human Immunodeficiency Virus (HIV): No (last tested one week ago, negative results ) Hx Hepatitis C: No Hx Depression: Yes Hx Suicide Attempt: No Hx Bipolar Disorder: No Hx Schizophrenia: No - Patient Surgical History Past Surgical History: Yes Hx Neurologic Surgery: No Hx Cataract Extraction: No Hx Cardiac Surgery: No Hx Lung Surgery: No Hx Breast Surgery: No Hx Breast Biopsy: No Hx Abdominal Surgery: No Hx Appendectomy: No Hx Cholecystectomy: No Hx Genitourinary Surgery: No Hx Section: No Hx Orthopedic Surgery: No Other Surgical History: 3 embolisms(1 rt armpit/1rt forearm/1-rt calf) in 2009 Anesthesia Reaction: No - PPD History Previous Implant?: Yes Documented Results: Negative w/proof Implanted On Prior R Admission?: Yes Date: 06/06/17 Results: 0 mm PPD to be Administered?: No - Reproductive History Patient is a Female of Child Bearing Age (11 -55 yrs old): Yes Last Menstrual Period: 06/04/14 Patient : No - Smoking Cessation Smoking history: Current every day smoker Have you smoked in the past 12 months: Yes Aproximately how many cigarettes per day: 10 Cigars Per Day: 0 Hx Chewing Tobacco Use: No Initiated information on smoking cessation: Yes 'Breaking Loose' booklet given: 01/29/18 - Substance & Tx. History Hx Alcohol Use: No Hx Substance Use: Yes Substance Use Type: Alcohol, Tranquilizers Hx Substance Use Treatment: Yes - Substances Abused Alprazolam (Xanax) Route: Oral Frequency: Daily Amount used: 16MG Age of first use: 51 Date of Last Use: 01/29/18 Family Disease History - Family Disease History Family Disease History: Heart Disease: Father (), Respiratory: Brother ( depression), Other: Father, Mother (), Sister (depression) Admission Physical Exam BHS - Vital Signs Vital Signs: Vital Signs - 24 hr 01/29/18 13:37 Temperature 98.5 F Pulse Rate 89 Respiratory 18 Rate Blood Pressure 117/71 - Physical General Appearance: Yes: Nourished, Moderate Distress, Tremorous, Sweating, Anxious HEENTM: Yes: EOMI, Hearing grossly Normal, Normal ENT Inspection, Normocephalic , Normal Voice, TREVOR, Pharynx Normal, Tm's normal Respiratory: Yes: Chest Non-Tender, Lungs Clear, Normal Breath Sounds, No Respiratory Distress, No Accessory Muscle Use Neck: Yes: Within Normal Limits Breast: Yes: Breast Exam Deferred Cardiology: Yes: Regular Rhythm, Regular Rate Abdominal: Yes: Normal Bowel Sounds, Non Tender, Soft, Protuberent Genitourinary: Yes: Within Normal Limits Back: Yes: Normal Inspection Musculoskeletal: Yes: full range of Motion, Gait Steady, Pelvis Stable, Back pain Extremities: Yes: Normal Capillary Refill, Normal Range of Motion Neurological: Yes: technical services consultant II-XII NML intact, Fully Oriented, Alert, Motor Strength 5/5, Depressed Affect Integumentary: Yes: Normal Color, Warm, Diaphoresis Lymphatic: Yes: Within Normal Limits - Diagnostic (1) History of pulmonary embolism Current Visit: Yes Status: Acute (2) Anxious mood Current Visit: Yes Status: Acute (3) Constipation Current Visit: Yes Status: Acute Qualifiers: Constipation type: unspecified constipation type Qualified Code(s): K59.00 - Constipation, unspecified (4) Sedative hypnotic or anxiolytic dependence Current Visit: Yes Status: Acute (5) Asthma Current Visit: Yes Status: Chronic Qualifiers: Asthma severity: mild Asthma persistence: intermittent Asthma complication type: uncomplicated Qualified Code(s): J45.20 - Mild intermittent asthma, uncomplicated (6) Hyperlipidemia Current Visit: Yes Status: Chronic Qualifiers: Hyperlipidemia type: unspecified Qualified Code(s): E78.5 - Hyperlipidemia , unspecified (7) Nicotine dependence Current Visit: Yes Status: Chronic Qualifiers: Nicotine product type: cigarettes Substance use status: in withdrawal Qualified Code(s): F17.213 - Nicotine dependence, cigarettes, with withdrawal (8) Obesity (BMI 30.0-34.9) Current Visit: Yes Status: Chronic (9) Bereavement due to life event Current Visit: Yes Status: Suspected Cleared for Admission [facility] - Detox or Rehab [facility] Level of Care: Medically Managed Detox Regimen/Protocol: Valium [facility] Breath Alcohol Content Breath Alcohol Content: 0 Urine Pregancy Test - Result Urine Test Results: Negative- NO Line Present Urine Drug Screen - Results Drug Screen Negative: No Urine Drug Screen Results: BZO-Benzodiazepines
[2018-01-29] MEDS ORDERED: ALBUTEROL SO4 8 GM HFA INHALER IH PRN (14:31)
[2018-01-29] MEDS ORDERED: MAG HYDROX/AL HYDROX/SIMETH 30 ML UNIT-DOSE CUP PO PRN (14:33)
[2018-01-29] MEDS ORDERED: LOPERAMIDE HCL 2 MG CAPSULE PO PRN (14:33)
[2018-01-29] MEDS ORDERED: MAGNESIUM HYDROX 2400MG/30ML ORAL SUSPENSION 30 ML CUP PO PRN (14:33)
[2018-01-29] MEDS ORDERED: MENTHOL/PHENOL 1 EACH UD MM PRN (14:33)
[2018-01-29] MEDS ORDERED: NICOTINE POLACRILEX 2 MG GUM BUC PRN (14:33)
[2018-01-29] MEDS ORDERED: IBUPROFEN 400 MG TABLET (FP) PO PRN (14:33)
[2018-01-29] MEDS ORDERED: MAGNESIUM CITRATE 300 ML BOTTLE PO PRN (14:33)
[2018-01-29] MEDS ORDERED: hydrOXYzine PAMOATE 50 MG CAPSULE (FP) PO PRN (14:33)
[2018-01-29] MEDS ORDERED: diazePAM 5 MG TABLET PO PRN (14:33)
[2018-01-29] MEDS ORDERED: P-EPHED 60MG/TRIPROLIDI 2.5MG TABLET PO PRN (14:33)
[2018-01-29] MEDS ORDERED: guaiFENesin/D-METHORPHAN HB 10 ML UNIT-DOSE CUPS PO PRN (14:33)
[2018-01-29] MEDS ORDERED: ACETAMINOPHEN 325 MG TABLET (FP) PO PRN (14:33)
[2018-01-29] MEDS ORDERED: ALBUTEROL SO4 0.083% IH SOL 2.5 MG/3 ML VIAL.NEB. NEB PRN (14:45)
[2018-01-29] MEDS ORDERED: diazePAM 5 MG TABLET PO ONE (15:35)
--- NOTE | 2018-01-29 21:26 | PN ---
[facility] Progress Note Note: Vital Signs Temperature 98.5 F 01/29/18 13:37 Pulse Rate 89 01/29/18 13:37 Respiratory Rate 18 01/29/18 13:37 Blood Pressure 117/71 01/29/18 13:37 O2 Sat by Pulse Oximetry (%) Patient left AMA and wishes to go home. Denies suicidal / homicidal ideation. Patient verbalizes awareness of the risk of interrupting treatment at this time which include worsening symptoms and even . If symptoms worsen aptient to follow up with local ED.
--- NOTE | 2018-01-29 21:27 | DS ---
[facility] Detox Discharge Summary Admission Date: 01/29/18 Discharge Date: 01/29/18 - History Present History: Sedative Dependence Pertinent Past History: Constipation Asthma Hx PE - Physical Exam Results Vital Signs: Vital Signs Temperature 98.5 F 01/29/18 13:37 Pulse Rate 89 01/29/18 13:37 Respiratory Rate 18 01/29/18 13:37 Blood Pressure 117/71 01/29/18 13:37 O2 Sat by Pulse Oximetry (%) Pertinent Admission Physical Exam Findings: Vital Signs Temperature 98.5 F 01/29/18 13:37 Pulse Rate 89 01/29/18 13:37 Respiratory Rate 18 01/29/18 13:37 Blood Pressure 117/71 01/29/18 13:37 O2 Sat by Pulse Oximetry (%) - Medication Discharge Medications: Ambulatory Orders Albuterol Sulfate Inhaler - [Ventolin Hfa Inhaler -] 2 inh PO QID PRN 03/30/17 Zolpidem Tartrate [Ambien] 10 mg PO HS 03/30/17 Aspirin [ASA -] 81 mg PO DAILY #30 tab.chew 06/08/17 Atorvastatin Ca [Lipitor] 20 mg PO HS #30 tablet 06/08/17 Mirtazapine [Remeron -] 7.5 mg PO HS #14 tablet 06/08/17 Escitalopram Oxalate [Lexapro -] 10 mg PO DAILY 01/29/18 Prednisone [Deltasone] 40 mg PO DAILY 01/29/18 - Diagnosis (1) History of pulmonary embolism Current Visit: Yes Status: Acute (2) Anxious mood Current Visit: Yes Status: Acute (3) Constipation Current Visit: Yes Status: Acute Qualifiers: Constipation type: unspecified constipation type Qualified Code(s): K59.00 - Constipation, unspecified (4) Sedative hypnotic or anxiolytic dependence Current Visit: Yes Status: Acute (5) Asthma Current Visit: Yes Status: Chronic Qualifiers: Asthma severity: mild Asthma persistence: intermittent Asthma complication type: uncomplicated Qualified Code(s): J45.20 - Mild intermittent asthma, uncomplicated (6) Hyperlipidemia Current Visit: Yes Status: Chronic Qualifiers: Hyperlipidemia type: unspecified Qualified Code(s): E78.5 - Hyperlipidemia , unspecified (7) Nicotine dependence Current Visit: Yes Status: Chronic Qualifiers: Nicotine product type: cigarettes Substance use status: in withdrawal Qualified Code(s): F17.213 - Nicotine dependence, cigarettes, with withdrawal (8) Obesity (BMI 30.0-34.9) Current Visit: Yes Status: Chronic (9) Bereavement due to life event Current Visit: Yes Status: Suspected - AMA Did Patient Leave Against Medical Advice: Yes
[2018-01-29] MEDS ORDERED: THIAMINE HCL 100 MG TABLET (FP) PO SCH (22:00)
[2018-01-29] MEDS ORDERED: MELATONIN 5 MG TABLETS PO PRN (22:00)
[2018-01-29] MEDS ORDERED: ATORVASTATIN CA 20 MG TABLET (FP) PO SCH (22:00)
[2018-01-29] MEDS ORDERED: MONTELUKAST NA 10 MG TABLET PO SCH (22:00)
[2018-01-29] MEDS ORDERED: diazePAM 5 MG TABLET PO SCH (22:00)
[2018-01-29 23:11] LABS: URINE APPEARANCE CLEAR; URINE BILIRUBIN NEGATIVE (<2.0 mg/dL); URINE COLOR COLORLESS; URINE GLUCOSE (UA) NEGATIVE (NEGATIVE); URINE KETONE NEGATIVE (NEGATIVE); URINE LEUK ESTERASE NEGATIVE (NEGATIVE); URINE NITRITE NEGATIVE (NEGATIVE); URINE PROTEIN NEGATIVE (NEGATIVE); URINE UROBILINOGEN NEGATIVE mg/dL (0.2-1.0)
[2018-01-29 23:16] LABS: EPI CELLS RARE /HPF (FEW)
[2018-01-30] MEDS ORDERED: ASPIRIN 81 MG CHEWABLE TABLETS PO SCH (10:00)
[2018-01-30] MEDS ORDERED: NICOTINE 14 MG/24 HOURS TOPICAL PATCH TD SCH (10:00)
[2018-01-30] MEDS ORDERED: PRENATAL VITAMINS W/ FOLIC ACID TABLET (FP) PO SCH (10:00)
[2018-01-30] MEDS ORDERED: predniSONE 20 MG TABLET (UD) PO SCH (10:00)
[2018-01-30] MEDS ORDERED: FLU VACCINE QUAD 60 MCG/0.5 ML (MDV 18-19) IM ONE (12:00)
--- NOTE | 2018-01-30 13:12 | EKG ---
Test Reason : Blood Pressure : / mmHG Vent. Rate : 085 BPM Atrial Rate : 085 BPM P-R Int : 158 ms QRS Dur : 078 ms QT Int : 356 ms P-R-T Axes : 059 048 045 degrees QTc Int : 423 ms NORMAL SINUS RHYTHM POSSIBLE LEFT ATRIAL ENLARGEMENT BORDERLINE ECG WHEN COMPARED WITH ECG OF 20-JUN-2017 22:58, NO SIGNIFICANT CHANGE WAS FOUND Confirmed by BECKIE JUAREZ MD ([id number]) on 01/30/2018 1:12:04 PM Referred By: Confirmed By:BECKIE JUAREZ MD
[2018-01-31] MEDS ORDERED: diazePAM 5 MG TABLET PO SCH (10:00)
[2018-02-02] MEDS ORDERED: diazePAM 5 MG TABLET PO SCH (10:00)
== END 2018-01-29 21:00 | disposition left against medical advice (07) | DRG 894 ==
LOC: YASAS 13:04 → Y6N 15:14
PROC: HZ2ZZZZ Detoxification Services for Substance Abuse Treatment (ICD-10-PCS; principal; 2018-01-29)
DX: F13.230 Sedative, hypnotic or anxiolytic dependence with withdrawal, uncomplicated (principal); F17.213 Nicotine dependence, cigarettes, with withdrawal; F32.9 Major depressive disorder, single episode, unspecified; F41.9 Anxiety disorder, unspecified; J45.20 Mild intermittent asthma, uncomplicated; K21.9 Gastro-esophageal reflux disease without esophagitis; K59.00 Constipation, unspecified; G47.00 Insomnia, unspecified; E66.9 Obesity, unspecified; Z68.28 Body mass index [BMI] 28.0-28.9, adult; Z86.711 Personal history of pulmonary embolism; Z86.718 Personal history of other venous thrombosis and embolism; Z63.4 Disappearance and death of family member; Z88.8 Allergy status to other drugs, medicaments and biological substances
CPT/HCPCS: 81003; 81015; 93005; 93010

== ENCOUNTER 2021-12-29 20:35 | Emergency (ER) | payer OTHER ==
[2021-12-29 20:48] VITALS: BMI 30.2
[2021-12-29 22:33] LABS: EPI CELLS 3 /uL (0-25.1); HCG,QUALITATIVE URINE Negative; HYALINE CASTS 0 /uL (0-3.1); URINE APPEARANCE CLEAR; URINE BACTERIA 79 /uL (0-1359); URINE BILIRUBIN NEGATIVE (NEGATIVE); URINE COLOR YELLOW; URINE GLUCOSE (UA) NEGATIVE (NEGATIVE); URINE KETONE NEGATIVE (NEGATIVE); URINE LEUK ESTERASE NEGATIVE (NEGATIVE); URINE NITRITE NEGATIVE (NEGATIVE); URINE PROTEIN NEGATIVE (NEGATIVE); URINE RBC 1 /uL (0-23.9); URINE UROBILINOGEN 0.2 mg/dL (0.2-1.0); URINE WBC 4 /uL (0-25.8)
[2021-12-29 22:36] LABS: URINE AMPHETAMINES NEGATIVE (NEGATIVE)
[2021-12-29 22:41] LABS: COCAINE, UR NEGATIVE (NEGATIVE); METHADONE, UR NEGATIVE (NEGATIVE); OPIATES, URI NEGATIVE (NEGATIVE); PHENCYCLIDINE,URINE NEGATIVE (NEGATIVE); URINE BARBITURATES NEGATIVE (NEGATIVE); URINE BENZODIAZEPINES NEGATIVE (NEGATIVE)
[2021-12-29 22:44] LABS: CHLORIDE 105 mmol/L (98-107); SODIUM 138 mmol/L (136-145)
[2021-12-29 22:47] LABS: ANION GAP 6 MMOL/L (8-16); CALCIUM 9.5 mg/dL (8.5-10.1); CO2 27 mmol/L (21-32); GLUCOSE,RANDOM 93 mg/dL (74-106)
[2021-12-29 22:50] LABS: CREATININE 0.9 mg/dL (0.55-1.3)
[2021-12-29 22:51] LABS: SGOT/AST 40 U/L (15-37); SGPT/ALT 18 U/L (13-61)
[2021-12-29 22:52] LABS: BILIRUBIN,TOTAL 0.7 mg/dL (0.2-1); TOT PROT 8.1 g/dl (6.4-8.2)
[2021-12-29 22:53] LABS: ALK PHOS 98 U/L (45-117)
[2021-12-30] MEDS ORDERED: clonazePAM 0.5 MG TABLET PO ONE (00:39)
[2021-12-30] MEDS ORDERED: clonazePAM 0.5 MG TABLET ONE (01:21)
[2021-12-30 03:38] VITALS: RESP 16
[2021-12-30 09:57] VITALS: BP 125/74; PULSE 68; TEMP 98.4
== END 2021-12-30 10:37 | disposition home or self-care (01) ==
LOC: JER 20:35
DX: T42.4X1A Poisoning by benzodiazepines, accidental (unintentional), initial encounter (principal)
CPT/HCPCS: 0241U-QW; 80053; 80307; 81003; 84703; 93005; 93010; 99291

== ENCOUNTER 2022-07-12 11:33 | Inpatient (IN) | payer OTHER ==
[2022-07-12 12:05] VITALS: TEMP 97.5; BMI 27.0
[2022-07-12] MEDS ORDERED: ACETAMINOPHEN 325 MG TABLET (FP) PO PRN ×2 (14:03)
[2022-07-12] MEDS ORDERED: MAG HYDROX/AL HYDROX/SIMETH 30 ML UNIT-DOSE CUP PO PRN (14:03)
[2022-07-12] MEDS ORDERED: LOPERAMIDE HCL 2 MG CAPSULE PO PRN (14:03)
[2022-07-12] MEDS ORDERED: ONDANSETRON *ODT* 4 MG TABLET SL PRN (14:03)
[2022-07-12] MEDS ORDERED: METHOCARBAMOL 500 MG TABLET PO PRN (14:03)
[2022-07-12] MEDS ORDERED: MAGNESIUM HYDROX 2400MG/30ML ORAL SUSPENSION 30 ML CUP PO PRN (14:03)
[2022-07-12] MEDS ORDERED: diazePAM 5 MG TABLET PO PRN (14:03)
[2022-07-12] MEDS ORDERED: NICOTINE 14 MG/24 HOURS TOPICAL PATCH TD PRN (14:03)
[2022-07-12] MEDS ORDERED: POLYETHYLENE GLYCOL (HEALTHYLAX) 3350 17 GM PACKET PO PRN (14:03)
[2022-07-12] MEDS ORDERED: BISMUTH SUBSALICYLATE 262 MG/15 ML BTL PO PRN (14:03)
[2022-07-12] MEDS ORDERED: NICOTINE POLACRILEX 2 MG GUM BUC PRN (14:03)
[2022-07-12] MEDS ORDERED: IBUPROFEN 600 MG TABLET (FP) PO PRN (14:03)
[2022-07-12] MEDS ORDERED: BENZOCAINE/MENTHOL (CHLORASEPTIC ) LOZENGE MM PRN (14:03)
[2022-07-12] MEDS ORDERED: NICOTINE 10 MG CARTRIDGE (INHALER) IH PRN (14:03)
[2022-07-12] MEDS ORDERED: NALOXONE HCL (KLOXXADO) 8 MG SPRAY NS PRN (14:03)
[2022-07-12] MEDS ORDERED: IBUPROFEN 400 MG TABLET (FP) PO PRN (14:03)
[2022-07-12] MEDS ORDERED: DICYCLOMINE HCL 10 MG CAPSULE PO PRN (14:03)
[2022-07-12] MEDS ORDERED: hydrOXYzine PAMOATE 25 MG CAPSULE (FP) PO PRN (14:03)
[2022-07-12] MEDS ORDERED: ALBUTEROL SO4 HFA INHALER IH PRN ×2 (14:10→16:07)
[2022-07-12] MEDS ORDERED: PRENATAL VITAMINS W/ FOLIC ACID TABLET (FP) PO SCH (14:15)
[2022-07-12] MEDS ORDERED: diazePAM 5 MG TABLET PO SCH (15:00)
[2022-07-12] MEDS ORDERED: diazePAM 5 MG TABLET ONE (15:06)
[2022-07-12] MEDS ORDERED: PRENATAL VITAMINS W/ FOLIC ACID TABLET (FP) PO ONE (15:06)
[2022-07-12 15:38] VITALS: BP 96/57; PULSE 86; RESP 18
[2022-07-12] MEDS ORDERED: MELATONIN 5 MG TABLETS PO SCH (22:00)
[2022-07-12] MEDS ORDERED: THIAMINE HCL 100 MG TABLET (FP) PO SCH (22:00)
[2022-07-13] MEDS ORDERED: ASPIRIN 81 MG CHEWABLE TABLETS PO SCH (10:00)
[2022-07-14] MEDS ORDERED: diazePAM 5 MG TABLET PO SCH (06:00)
[2022-07-15] MEDS ORDERED: diazePAM 5 MG TABLET PO SCH (06:00)
[2022-07-16] MEDS ORDERED: diazePAM 5 MG TABLET PO ONE (06:00)
== END 2022-07-12 15:58 | disposition left against medical advice (07) | DRG 894 ==
LOC: YASAS 11:33 → Y6N 14:42
PROVIDERS: ADMIT Allergy & Immunology; ATTEND Surgery
PROC: HZ2ZZZZ Detoxification Services for Substance Abuse Treatment (ICD-10-PCS; principal; 2022-07-12)
DX: F13.230 Sedative, hypnotic or anxiolytic dependence with withdrawal, uncomplicated (principal); F17.210 Nicotine dependence, cigarettes, uncomplicated; F19.24 Other psychoactive substance dependence with psychoactive substance-induced mood disorder; F51.01 Primary insomnia; F41.9 Anxiety disorder, unspecified; F43.10 Post-traumatic stress disorder, unspecified; J45.20 Mild intermittent asthma, uncomplicated; Z88.8 Allergy status to other drugs, medicaments and biological substances
CPT/HCPCS: 87811; C9803-CS; U0003; U0005